=== PATIENT | female | born 2000 | race Hispanic/Latino ===

== ENCOUNTER 2019-01-14 12:26 | Emergency (ER) | payer OTHER ==
[~2019-01-14] VITALS: Ht 162.6 cm; Wt 55.8 kg
[2019-01-14 12:26] VITALS: BP 117/55
== END 2019-01-14 13:40 | disposition home or self-care (01) ==
LOC: M ED 12:26
DX: Z34.01 Encounter for supervision of normal first pregnancy, first trimester (principal); Z3A.01 Less than 8 weeks gestation of pregnancy

== ENCOUNTER 2019-03-02 17:55 | Emergency (ER) | payer OTHER ==
[~2019-03-02] VITALS: Ht 162.6 cm; Wt 53.6 kg
[2019-03-02 19:15] LABS: BASO % 0.4 % (0.0-1.0); EOS # 0.1 10^3/uL (0.0-0.50); EOS % 1.2 % (0.0-3.0); HEMATOCRIT 33.1 % (36.0-47.0); HEMOGLOBIN 11.3 g/dl (12.0-15.5); LYMPH % 28.9 % (24.0-44.0); MEAN CORPUSCULAR HEMOGLOBIN 29.9 pg (27.0-33.0); MEAN CORPUSCULAR HGB CONC 34.1 g/dl (32.0-36.5); MEAN CORPUSCULAR VOLUME 87.6 fl (80.0-96.0); MONO # 0.5 10^3/uL (0.0-0.8); MONO % 6.9 % (0.0-5.0); NEUTROPHILS # 4.2 10^3/uL (1.8-7.7); NEUTROPHILS % 62.3 % (36.0-66.0); PLATELET COUNT, AUTOMATED 231 10^3/uL (150-450); RED BLOOD COUNT 3.78 10^6/uL (4.00-5.40); WHITE BLOOD COUNT 6.8 10^3/uL (4.0-10.0)
[2019-03-02 21:16] VITALS: BP 95/58
--- NOTE | 2019-03-02 21:28 | REPVR ---
EXAM: US First Trimester, Transabdominal. Additional Gestation. EXAM DATE/TIME: 03/02/2019 7:53 PM CLINICAL HISTORY: 18 years old, female; Signs and symptoms; Lmp or gestational age (in weeks): 13w 5 d; Antepartum complications; Bleeding; TECHNIQUE: Imaging protocol: Real-time transabdominal obstetrical ultrasound of the maternal pelvis and a first trimester with image documentation. Additional gestation was evaluated. COMPARISON: No relevant prior studies available. FINDINGS: Dichorionic diamnionic twin gestation. GESTATION: Multifetal identity: Twin B Gestation: Intrauterine gestation. Gestational sac measuring 2.1 cm for a menstrual age of 6 weeks and 5 days (5 weeks and 5 days-7 weeks and 4 days). Single pole with crown-rump length measurement of 1.2 cm for a menstrual age of 7 weeks and 3 days (range 6 weeks 6 days-8 weeks 0 days). Heart rate: No cardiac activity . IMPRESSION: 1. demise of twin B. Gestational age of 7 weeks and 3 days EXAM: US First Trimester, Transabdominal EXAM DATE/TIME: 03/02/2019 7:53 PM CLINICAL HISTORY: 18 years old, female; Signs and symptoms; Lmp or gestational age (in weeks): 13w 5 d; Antepartum complications; Bleeding; TECHNIQUE: Imaging protocol: Real-time transabdominal obstetrical ultrasound of the maternal pelvis and a first trimester , less than 14 weeks 0 days, with image documentation. COMPARISON: No relevant prior studies available. FINDINGS: Dichorionic diamnionic twin GESTATION: Multi- identity: Twin A. Gestation: There is a intrauterine . Heart rate: 158 beats per minute. Placenta: Fundal. No subchorionic bleed. Amniotic fluid: Amniotic and chorionic fluid are normal for gestational age. BIOMETRY: [place]-Rump length: There is a pole with a crown-rump length measurement of 8.3 cm for menstrual age of 14 weeks and 2 days. MATERNAL: Uterus: Unremarkable. Cervix: Fundal and free of the cervical os. Right adnexa: Unremarkable. Left adnexa: Unremarkable. Intraperitoneal: No intraperitoneal free fluid. IMPRESSION: 1. Twin A. is viable and has an estimated menstrual age of 14 weeks and 0 days with a range of 12 weeks and 6 days to 15 weeks and 1 day. Expected date of confinement 09/02/2019. Electronically signed by: Darling Kirby On 03/02/2019 21:28:24 PM
== END 2019-03-02 21:17 | disposition home or self-care (01) ==
LOC: M ED 17:55
DX: O31.1 Continuing pregnancy after spontaneous abortion of one fetus or more (principal); Z3A.13 13 weeks gestation of pregnancy

== ENCOUNTER 2019-07-24 21:19 | Outpatient (CLI) | payer OTHER ==
[~2019-07-24] VITALS: Ht 162.6 cm; Wt 69.8 kg
[2019-07-24 21:45] VITALS: BP 112/54
[2019-07-24] MEDS ORDERED: IRONTAB3 PO (21:52)
[2019-07-24] MEDS ORDERED: PRENTAB9 PO (21:52)
[2019-07-24] MEDS ORDERED: VITAMIN C PO (21:52)
[2019-07-24 22:40] LABS: HEMATOCRIT 34.2 % (36.0-47.0); HEMOGLOBIN 11.7 g/dl (12.0-15.5); MEAN CORPUSCULAR HGB CONC 34.2 g/dl (32.0-36.5); MEAN CORPUSCULAR VOLUME 93.4 fl (80.0-96.0); PLATELET COUNT, AUTOMATED 213 10^3/uL (150-450); RED BLOOD COUNT 3.66 10^6/uL (4.00-5.40)
--- NOTE | 2019-07-24 22:44 | IPNPDOC ---
Text Note Date of Service The patient was seen on 07/24/19. NOTE OB Considerations: - Active duty, in centering Deysi is a 18yo G1 at 33+6wks (ROSA [id number]) presents to L&D triage with increased pelvic pressure after falling this afternoon. She reports that she has a puppy, and she tripped over him and landed on her bottom for a ground level fall. She denies striking her abdomen. She reports the incident happened at 1700 today ([id number]). She denies ctx, vaginal bleeding, LOF or abdominal pain. Reports active movement. VS: Reviewed, normotensive, nontachycardic, afebrile GEN: WNWD, NAD ABD: Soft, Gravid, NT EXT: No edema NST: 140bpm, moderate variability, +accelerations, -decelerations TOCO: Quiet DCE: closed Labs: CBC 13>11.7>34.2<213 PT/INR 13.2/1.03 PTT 27.0 Fibrinogen 424 Limited bedside US Cephalic presentation, + cardiac activity, JANINE 9.14cm, Posterior placenta without retroplacental fluid accumulations A/P: SIUP at 33+6wks s/p fall, reassuring labs, monitoring, and US. No concern for abruption at this time. I discussed this with the patient and partner. - Discussed strict return and labor precautions - Discussed fall precautions with patient - Encouraged hydrations - Discussed kick counts - Patient is to keep all scheduled follow ups DO HANH Teixeira,Jaki, I+O VS, Mariame, I+O Vital Signs Date Time Temp Pulse Resp B/P (MAP) Pulse Ox O2 Delivery O2 Flow Rate FiO2 07/24/19 21:45 98.3 84 16 112/54 (73) CHIDI HALEY DO Jul 24, 2019 22:44
[2019-07-24 23:00] LABS: INR 1.03; PROTHROMBIN TIME 13.2 SECONDS (11.8-14.0)
[2019-07-24 23:28] VITALS: BP 118/52
== END 2019-07-24 23:45 | disposition home or self-care (01) ==
LOC: M LDO 21:19
PROVIDERS: ATTEND Obstetrics & Gynecology
DX: O99.89 Other specified diseases and conditions complicating pregnancy, childbirth and the puerperium (principal); Z3A.33 33 weeks gestation of pregnancy; W18.31XA Fall on same level due to stepping on an object, initial encounter
CPT/HCPCS: 36415; 59025; 85027; 85384; 85610; 85730; G0378; G0463

== ENCOUNTER 2019-09-03 12:09 | Outpatient (CLI) | payer OTHER, SELFPAY ==
[~2019-09-03] VITALS: Ht 162.6 cm; Wt 73.0 kg
[2019-09-03 12:26] VITALS: BP 105/56
--- NOTE | 2019-09-03 13:17 | IPNPDOC ---
Text Note Date of Service The patient was seen on 09/03/19. NOTE Patient is a 18 yo G1 @ 39+5wks gestation presents with concern for DFM and contractions. denies LOF/VB. Patient feels baby movement now. vitals: normal NAD abd: gravid, soft, nt, cephalic fht: 130/mod niall/pos accel/no decel toco: irregular ctx ce: /-1 a/p patient feeling baby move now, reactive tracing, not in labor. d/c home with return precautions. f/u with clinic as scheduled. DO omar VS,Mariame, I+O VS, Fishbone, I+O Vital Signs Date Time Temp Pulse Resp B/P (MAP) Pulse Ox O2 Delivery O2 Flow Rate FiO2 09/03/19 12:26 97.4 88 18 105/56 (72) LOUISE FERNANDES DO Sep 03, 2019 13:17
== END 2019-09-03 13:16 | disposition home or self-care (01) ==
LOC: M LDO 12:09
PROVIDERS: ATTEND Obstetrics & Gynecology
DX: O36.8131 Decreased fetal movements, third trimester, fetus 1 (principal); O47.1 False labor at or after 37 completed weeks of gestation; Z3A.39 39 weeks gestation of pregnancy
CPT/HCPCS: 59025; G0378; G0463

== ENCOUNTER → 2019-09-03 | Outpatient (CLI) | payer OTHER ==
[~2019-09-03] VITALS: Ht 162.6 cm; Wt 71.8 kg
[~2019-09-03] MED LIST: IRONTAB3 PO; PRENTAB9 PO; VITAMIN C PO
[2019-09-04 00:06] VITALS: BP 100/58
--- NOTE | 2019-09-04 01:14 | IPNPDOC ---
Text Note Date of Service The patient was seen on 09/04/19. NOTE patient is a 18 yo G1 @ 39+6wks gestation presents to l&d with contractions. denies VB/LOF. +FM vitals: normal laying in bed, NAD fht: 135/mod niall/pos accel/no decel toco: ctx q 5mins ce: /-1 (per nursing check) a/p patient @ 39+6wks, in latent labor. Discussed with patient s/s to come back. DO Martha VS,Jaki, I+O VS, Jaki, I+O Vital Signs Date Time Temp Pulse Resp B/P (MAP) Pulse Ox O2 Delivery O2 Flow Rate FiO2 09/04/19 00:08 98.6 18 09/04/19 00:06 84 100/58 (72) LOUISE FERNANDES DO Sep 04, 2019 01:14
== END ==
LOC: M LDO 23:46
PROVIDERS: ATTEND Obstetrics & Gynecology
DX: O47.1 False labor at or after 37 completed weeks of gestation (principal); Z3A.39 39 weeks gestation of pregnancy

== ENCOUNTER 2019-09-04 13:40 | Inpatient (IN) | payer OTHER ==
[~2019-09-04] VITALS: Ht 162.6 cm; Wt 71.0 kg
[2019-09-04] VITALS (23 sets, daily range): BP systolic 86–130; BP diastolic 48–78
[2019-09-04] MEDS ORDERED: NALBUPHINE HCL 10 MG/ML AMP (J2300) IM ONE (14:30)
[2019-09-04] MEDS ORDERED: PROMETHAZINE INJ 25 MG/ML VIAL (J2550) IV ONE (14:30)
[2019-09-04] MEDS ORDERED: NALBUPHINE HCL 10 MG/ML AMP (J2300) IV ONE (14:30)
[2019-09-04 15:40] LABS: HEMATOCRIT 36.5 % (36.0-47.0); HEMOGLOBIN 12.3 g/dl (12.0-15.5); MEAN CORPUSCULAR HEMOGLOBIN 30.5 pg (27.0-33.0); MEAN CORPUSCULAR HGB CONC 33.7 g/dl (32.0-36.5); MEAN CORPUSCULAR VOLUME 90.6 fl (80.0-96.0); PLATELET COUNT, AUTOMATED 266 10^3/uL (150-450); RED BLOOD COUNT 4.03 10^6/uL (4.00-5.40); WHITE BLOOD COUNT 19.5 10^3/uL (4.0-10.0)
[2019-09-04] MEDS ORDERED: LR 1,000 ML IV SCH (19:21)
[2019-09-04] MEDS ORDERED: PENICILLIN G POTASSIUM IV 5 MU in D5W MINI-BAG PLUS 100 ML IV STA (19:21)
[2019-09-04] MEDS ORDERED: LACTATED RINGER'S 1000 ML IV STA (19:21)
[2019-09-04] MEDS ORDERED: OXYTOCIN DRIP 30 UNITS in IV 1 EA IV SCH (19:30)
--- NOTE | 2019-09-04 19:35 | HPEPDOC ---
Obstetrical History & Physical General Date of Admission 09/04/19 History of Present Illness Ob Considerations: Twin with first trimester demise of Twin B Anemia on Iron and Vitamin C Excessive wt gain - 38.2lbs Ms. Fink is a 18y/o G1 @ 39+6 wks by 9 wk US (ROSA [id number]) presented to triage for complaint of ROM at 1240. Initially no pooling or ferning noted, Nitrazine negative. DCE /-1, with bag felt over infant head. Patient elected for Nubain rest. Upon awaking, patient noted continued leakage of flui d. DCE unchanged at /0, however, bag no longer palpated. Total JANINE 5.0cm, therefore, patient admitted for IOL for borderline oligohydramnios and possible ROM. Patient endorses initially "constant" painful contractions, resolved with Nubain. Denies vaginal bleeding. Endorses active movement. Chief Complaint: LOF, term Information Provided By: Patient Age: 18 : 1 Term: 0 Pre-term: 0 Abortions: 0 Livin Care Care: Good Care Dating Final EDC: Sep 05, 2019 Final EDC for Daily Update: Sep 05, 2019 Final EDC by: 1st trimester (US) LMP: Nov 21, 2018 Estimated Date of Confinement: Sep 05, 2019 EGA at Admission: 39.6 Antepartum Course Diagnos(e)s Twin with first trimester demise of twin A Anemia Excessive wt gain Borderline Oligohydramnios Height (inches): 65 Pre- weight (lbs.): 118 Admission Weight (lbs.): 156.2 Change in Weight (lbs.): 38.2 Past Medical History Past Obstetrical History : Past Obstetrical History: Primgravida 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 pertinent history Past Medical History Medical History Denies Surgical History: Denies/None Family History Significant Family History: No pertinent family hx Social History Marital Status: Family situation: Spouse/partner home Psychosocial History: No pertinent psych hx * Smoker: non-smoker Alcohol: Denies Drugs: denies Abuse Violence Screening Have you been hit/kicked/slapp: No Have you been sexually assault: No Imunizations Tdap status: current Influenza Status: needs Allergies Coded Allergies: No Known Allergies (Unverified , 07/24/19) Medications Scheduled No.137/Iron/Folic Acd ( Vitamin Tablet) 1 Each Tablet, 1 TAB PO DAILY Physical Examination Physical Examination GENERAL: Alert and oriented times three. BREAST: . ABDOMEN: Gravid and non-tender to touch. FETUS: Is vertex (VTX) by sterile vaginal examination (SVE), fetus is vertex (VTX) by Jose. JANINE 5.0cm. Cephalic by TAUS. EFW 3400g HEART RATE: Regular rate and rhythm. LUNGS: Clear to auscultation (CTA). EXTREMITIES: No edema. Vital Signs/I&O Vital Signs Date Time Temp Pulse Resp B/P (MAP) Pulse Ox O2 Delivery O2 Flow Rate FiO2 09/04/19 16:34 98.2 101 16 106/61 (76) Laboratory Data 24H LABS Laboratory Tests 2 09/04/19 14:53: Nucleated Red Blood Cells % (auto) 0.0 CBC/BMP Laboratory Tests 09/04/19 14:53 Urine Culture: Other (mixed theresa) Pertinent Laboratoy Data Blood Type: B+ HIV: Negative Hepatitis B: Negative Rapid Plasma Reagin: Nonreactive Rubella: Immune Varicella: Immune Chlamydia/Gonorrhea: Negative Group B Streptococcus: Positive Cystic Fibrosis: Negative Glucose Tolerance Test: 105 Anatomy Ultrasound Ultrasound Date: Apr 16, 2019 Placenta Location: Posterior Normal Anatomy: Yes Placenta Previa: No Estimated Weight (grams): 334 Steroid Therapy Steroid Therapy: No Vaginal Examination Dilation: 3 cm Effacement: 90% Station: 0 Cervical Consistency: Soft Cervical Position: Middle Presentation: Cephalic presentation Position: Vertex (occiput) Assessment Heart Rate (FHR): 130 Variability: Moderate Accelerations: Positive Decelerations: None Tocometer Contractions: Yes Frequency: irregular, greater than 9 min/apart Duration: less than 60 seconds Strength: palpated as mild Multi-drug resistant Organism: No history of MDRO Assessment/Plan Assessment 18y/o G1 @ 39+6 wks admitted for borderline oligohydramnios/possible ROM. Plan Admit and orient. Spool Carrier and consent. Diet: Clear liquids Group B Streptococcus (GBS) positive. PCN ordered for prophylaxis. Labs and intravenous (IV) per unit protocol. Counseled on Pitocin and induction of labor (IOL). Lactated Ringers (LR): Bolus 1000 mL, then at 125 mL/hr. Anticipate normal spontaneous delivery (). C-S as appropriate. Labor and Delivery Counseling Discussed with patient procedures that are performed on labor and delivery to include external monitoring, internal monitoring with FSE/IUPC. Discussed induction of labor with Pitocin and/or AROM. Discussed need for antibiotics for GBS positive, and addition of antibiotics if intramniotic infection is suspected. Discussed possible need for episiotomy and/or presence of tearing during delivery which would be repaired with absorbable sutures. Discussed bleeding with risk of blood transfusion, to include subsequent risks of HIV/Hepatitis and transfusion reaction. Discussed assisted vaginal delivery with vacuum or forceps. Additional risks include injury to baby, need for emergency , need for additional procedures as indicated. All questions answered to patient's apparent satisfaction. Zahra Schneider MD Sep 04, 2019 19:35
[2019-09-04] MEDS ORDERED: FENTANYL 2MCG/ML ROPIVACAINE 0.2% IN 0.9% NACL 100ML IVBAG As Ordered ONE (21:52)
[2019-09-04] MEDS ORDERED: ONDANSETRON 4MG/2ML VIAL (J2405) IV PRN (23:15)
[2019-09-04] MEDS ORDERED: NALOXONE INJ 0.4 MG/1 ML VIAL (J2310) IV PRN (23:15)
[2019-09-04] MEDS ORDERED: diphenhydrAMINE INJ 50MG/ML VIAL (J1200) IV PRN (23:15)
[2019-09-04] MEDS ORDERED: FENTANYL/ROPIVACAINE/NACL BAG 100 ML EPIDURAL SCH (23:15)
[2019-09-04] MEDS ORDERED: EPIDURAL COMMENT XX SCH (23:15)
[2019-09-04] MEDS ORDERED: REFRIGERATOR IV KEYS XX PRN (23:15)
[2019-09-04] MEDS ORDERED: EPIDURAL/PCA KEYS XX PRN (23:15)
[2019-09-04] MEDS: ePHEDrine SULFATE 25 MG/5 ML(5MG/ML) SYRINGE IV PRN ×3 (23:43→23:54)
[2019-09-05] VITALS (23 sets, daily range): BP systolic 80–110; BP diastolic 41–77
[2019-09-05] MEDS ORDERED: PENICILLIN G POTASSIUM IV 2.5 MU in IV 1 EA IV SCH ×2
[2019-09-05] MEDS ORDERED: ePHEDrine SULFATE 25 MG/5 ML(5MG/ML) SYRINGE IV PRN (01:00)
[2019-09-05] MEDS: ePHEDrine SULFATE 25 MG/5 ML(5MG/ML) SYRINGE IV PRN ×3 (01:05→01:32)
--- NOTE | 2019-09-05 06:32 | DNPDOC ---
[facility] Delivery Note Delivery Note DATE OF DELIVERY: 05Sep2019 PREDELIVERY DIAGNOSIS: 40+0/7 weeks' gestation and labor. POST DELIVERY DIAGNOSIS: Delivered. PROCEDURE: Spontaneous vaginal delivery RN NEONATAL: Dr. Schneider ANESTHESIA: Epidural ESTIMATED BLOOD LOSS: 250 mL. FINDINGS: 7 pound 10 ounce 3450g infant, Score 9/9, no nuchal cord. DELIVERY SUMMARY: Patient is a 18-year-old 1 now para 1001 who was admitted to labor and delivery for PROM. Patient progressed with Pitocin augmentation to C/C/+3. With epidural anesthesia, and excellent maternal effort, infant delivered OA, restituted ROT. The left anterior shoulder delivered with downward pressure and right posterior shoulder with upward guidance. Infant to maternal abdomen with spontaneous cry. Terminal meconium noted. Cord was clamped x2 and cut by FOB. Placenta delivered intact, 3vc, central insertion. Pitocin per protocol. Fundus firm at U-3. Systematic examination of perineum revealed bilateral labial lacerations, the right side repaired with two interrupted sutures of 4-0 vicryl. All counts were correct. Mother and infant stable when provider left the room. MD Wyatt Richmond Sara L MD Sep 05, 2019 06:32
[2019-09-05] MEDS ORDERED: SLF 3 ML SYR IV PRN (07:30)
[2019-09-05] MEDS ORDERED: IBUPROFEN 800 MG TAB PO PRN (07:45)
[2019-09-05] MEDS ORDERED: DIBUCAINE 1% OINTMENT 30GM TOP PRN (07:45)
[2019-09-05] MEDS ORDERED: IBUPROFEN 600 MG TAB PO PRN (07:45)
[2019-09-05] MEDS ORDERED: METHYLERGONOVINE MALEATE 0.2 MG TAB PO PRN (07:45)
[2019-09-05] MEDS ORDERED: DOCUSATE SODIUM 100 MG CAP PO PRN (07:45)
[2019-09-05] MEDS ORDERED: MEASLES,MUMPS,RUBELLA VACCINE INJ (MMR-II) (90707) SC SCH (07:45)
[2019-09-05] MEDS ORDERED: RHOGAM 300 MCG (1500 IU) INJ (J2790) IM SCH (07:45)
[2019-09-05] MEDS ORDERED: ACETAMINOPHEN 500 MG TAB PO PRN (07:45)
[2019-09-05] MEDS ORDERED: ACETAMINOPHEN TAB 650MG DOSE (2X325MG) PO PRN (07:45)
[2019-09-05] MEDS: PRENATAL VITAMINS CHEWABLE TABLET PO SCH (09:00)
[2019-09-05] MEDS ORDERED: INFLUENZA QUADRIVALENT PF VACCINE 0.5ML SYRINGE (90686) IM PRN (10:00)
[2019-09-05] MEDS ORDERED: SLF 3 ML SYR IV SCH (14:00)
[2019-09-06 05:30] VITALS: BP 100/54
--- NOTE | 2019-09-06 08:13 | IPN ---
DATE: 09/06/2019 This lady is a 18 year old, 1, now para 1, admitted with ruptured membranes at 39 and 6 weeks of gestation with spontaneous vaginal delivery of a live female infant, 7 pounds 10 ounces or 3450 grams, and Apgars of 9 and 9 at one and five minutes respectively. Her vital signs this morning are her blood pressure is 100/54, respirations are 15, pulse 77, temperature 97.2. Her admitting hemoglobin was 12.3, hematocrit 36.5 and platelets are 266. This morning, she is doing well. She is anxious about her baby as he is in the intensive care unit (NICU) on oxygen and will be here for 5 days. We discussed phlebitis, cystitis, mastitis, endometritis, cellulitis; diet, exercise and pain management; breast and wound care. The rest of the examination was unremarkable. Normocephalic, atraumatic. Neck full range of motion. Pupils equal and reactive to light. Distal pulses symmetric. No evidence of deep vein thrombosis (DVT), pulmonary embolism (PE) or superficial phlebitis. Chest is clear bilaterally at the bases. No wheezes or rhonchi. No costovertebral angle (CVA) tenderness. Abdomen soft. Four quadrant bowel sounds. Uterus two below. Lochia is moderate. Perineum is intact. There are no rashes, lesions or pruritus. No arthralgia or myalgia. No complaint of joint pain. No cough, wheezes, shortness of breath or dyspnea on exertion. No nausea, vomiting, diarrhea or constipation. No frequency or urgency. In summary, we have a term gestation who delivered a live male . The patient will be discharged tomorrow as a boarder status. The baby will be here for 5 days. Discussing with the data librarian, the baby is on flow oxygen, etiology unknown.
[2019-09-06] MEDS: PRENATAL VITAMINS CHEWABLE TABLET PO SCH (12:12)
--- NOTE | 2019-09-06 12:28 | OBDS ---
[facility] Obstetrical Discharge Sum. Obstetrical Discharge Summary Date: Sep 06, 2019 : 1 Term: 1 Pre-term: 0 Abortions: 0 Livin VDRL: Non-Reactive Rh: Positive Rubella: Immune Infant Sex: Female Weight: pounds (7), ounces (10) Anesthesia: Regional Anesthesia A/P, Post Course List any complications Admission diagnosis: Rupture membranes at term (39+6wks) Discharge diagnosis: spontaneous vaginal delivery Condition at Discharge: stable Discharge Instructions: Home Activity: as tolerated Diet: regular Medications: filled at [facility] Follow-up: 6-8 weeks Patient admitted to labor and delivery for spontaneous rupture membranes. Patient progressed to have an uncomplicated vaginal delivery. Patient meets criteria for discharge on day #1. LOUISE FERNANDES DO Sep 06, 2019 12:28
--- NOTE | 2019-09-06 12:30 | IPNPDOC ---
Text Note Date of Service NOTE Patient is a ppd #1. baby is in NICU and patient is breast pumping. She lives close to hospital and she is requesting to be discharged today. patient is tolerating regular activities without problem. vitals reviewed normal. okay for discharge. Martha, VS,Fishbone, I+O VS, Fishbone, I+O Vital Signs Date Time Temp Pulse Resp B/P (MAP) Pulse Ox O2 Delivery O2 Flow Rate FiO2 09/06/19 05:30 97.2 77 15 100/54 (69) 99 Room Air I&O- Last 24 Hours up to 6 AM 09/06/19 06:00 Intake Total 683.5 ml Output Total 750 ml Balance -66.5 ml LOUISE FERNANDES DO Sep 06, 2019 12:30
== END 2019-09-06 14:25 | disposition home or self-care (01) | DRG 807 ==
LOC: M LDO 13:40 → M LDI 19:29 → M OBS 09-05 09:20
PROVIDERS: ADMIT Obstetrics & Gynecology; ATTEND Obstetrics & Gynecology
PROC: 10E0XZZ Delivery of Products of Conception, External Approach (ICD-10-PCS; principal; 2019-09-05)
PROC: 0HQ9XZZ Repair Perineum Skin, External Approach (ICD-10-PCS; 2019-09-05)
DX: O42.02 Full-term premature rupture of membranes, onset of labor within 24 hours of rupture (principal); Z37.0 Single live birth; O99.02 Anemia complicating childbirth; D64.9 Anemia, unspecified; O26.03 Excessive weight gain in pregnancy, third trimester; Z3A.39 39 weeks gestation of pregnancy; O70.0 First degree perineal laceration during delivery